=== PATIENT | female | born 1970 | race Caucasian/White ===

== ENCOUNTER 2017-05-15 12:14 | Outpatient (CLI) | payer BC ==
--- NOTE | 2017-05-15 15:00 | Mammography Report ---
LEFT DIGITAL DIAGNOSTIC MAMMOGRAM with CAD: 05/15/17 12:14:00 CLINICAL: Left breast pain after surgical excision of a benign fibroadenoma. COMPARISON:[facility] left mammogram and left breast ultrasound 09/09/16 and 01/03/16 FINDINGS: The breast is heterogeneously dense, which may obscures small masses.No mass, architectural distortion or suspicious calcifications. A few scattered benign calcifications. Mild upper outer postsurgical scar. IMPRESSION: Negative mammogram after benign surgical excision. BI-RADS CATEGORY: 1 - - Negative RECOMMENDATION: Clinical followup and routine mammographic screening ACR BI-RADS MAMMOGRAPHIC CODES: 0 = Needs additional imaging evaluation; 1 = Negative; 2 = Benign; 3 = Probably benign; 4 = Suspicious; 5 = Malignant; 6 = Known biopsy-proven malignancy COMMENT: 1. Dense breast tissue, i.e., adenosis, fibrocystic changes, etc., may obscure an underlying neoplasm. 2. Approximately 10% of cancers are not detected with mammography. 3. A negative mammography report should not delay biopsy if a clinically suspicious mass is present. COMMENT: Patient follow-up letters are generated by our [email or web address] application.
== END 2017-05-15 12:15 | disposition home or self-care (01) ==
LOC: MAMMO 12:14
PROVIDERS: ATTEND Family Medicine
DX: N64.4 Mastodynia (principal)
CPT/HCPCS: G0206-LT